=== PATIENT | male | born 1995 | race Caucasian/White ===

== ENCOUNTER 2020-11-15 09:49 | Outpatient (REF) | payer OTHER, SELFPAY ==
[2020-11-15 10:14] LABS: COVID-19 Test Negative (Negative)
== END 2020-11-15 09:50 | disposition home or self-care (01) ==
LOC: HO.LAB 09:49
PROVIDERS: Visit Provider Internal Medicine
DX: Z20.822 Contact with and (suspected) exposure to COVID-19 (principal)
CPT/HCPCS: 36415; 87635; C9803

== ENCOUNTER 2021-01-16 10:38 | Outpatient (REF) | payer OTHER, SELFPAY | END 2021-01-16 10:39 | disposition home or self-care (01) | LOC: HO.LAB 10:38 | PROVIDERS: Visit Provider Internal Medicine | DX: Z20.822 Contact with and (suspected) exposure to COVID-19 (principal) | CPT/HCPCS: C9803; U0003; U0005 ==